=== PATIENT | male | born 1975 | race Two or more races ===

== ENCOUNTER 2024-08-02 15:23 | Emergency (ER) | payer OTHER ==
[~2024-08-02] VITALS: Ht 177.8 cm; Wt 124.7 kg
[2024-08-02] MEDS ORDERED: ACETAMINOPHEN 325 MG TABLET ONE (17:41)
[2024-08-02] MEDS: ACETAMINOPHEN 325 MG TABLET PO ONE (17:43)
[2024-08-02 18:14] LABS: BASOPHILS % (AUTO) 0.3 % (0.0-2.0); EOSINOPHILS # (AUTO) 0.1 K/uL (0.0-0.7); EOSINOPHILS % (AUTO) 0.9 % (0.0-6.0); HEMATOCRIT 42 % (39-51); HEMOGLOBIN 14.5 g/dL (13.5-17.5); LYMPHOCYTES # (AUTO) 1.9 K/uL (0.8-4.8); LYMPHOCYTES % (AUTO) 25.6 % (20.0-44.0); MEAN CORPUSCULAR HEMOGLOBIN 31 PG (26.0-33.0); MEAN CORPUSCULAR HGB CONC 35 g/dl (31.0-36.0); MEAN CORPUSCULAR VOLUME 89 fL (80-96); MONOCYTES # (AUTO) 0.5 K/uL (0.1-1.30); MONOCYTES % (AUTO) 6.6 % (2.0-12.0); NEUTROPHILS % (AUTO) 66.6 % (43.0-81.0); PLATELET COUNT (AUTO) 213 K/uL (150-450); RED CELL DISTRIBUTION WIDTH 13.9 % (11.5-15.0); WHITE BLOOD COUNT (AUTO) 7.5 K/uL (4.3-11.0)
[2024-08-02 18:31] LABS: CALCIUM, SERUM 8.9 mg/dL (8.5-10.1); CREATININE 0.7 mg/dL (0.6-1.3); POTASSIUM 4.3 mmol/L (3.5-5.1)
[2024-08-02] MEDS ORDERED: LIDO30AD10 TP (19:17)
[2024-08-02] MEDS ORDERED: CYCL5TAB PO (19:17)
[2024-08-02] MEDS ORDERED: IBUP-1955 PO (19:17)
[2024-08-02 19:38] VITALS: BP 149/74; TEMP 98.5; O2SAT 97
== END 2024-08-02 19:43 | disposition home or self-care (01) ==
LOC: ER 15:31
DX: S16.1XXA Strain of muscle, fascia and tendon at neck level, initial encounter (principal); S09.90XA Unspecified injury of head, initial encounter; I10 Essential (primary) hypertension; E11.9 Type 2 diabetes mellitus without complications; W01.0XXA Fall on same level from slipping, tripping and stumbling without subsequent striking against object, initial encounter; Y93.89 Activity, other specified; Y92.89 Other specified places as the place of occurrence of the external cause; Y99.8 Other external cause status
CPT/HCPCS: 36415; 70450-TC; 71045-TC; 72125-TC; 80048-TC; 82962-TC; 85025-TC